=== PATIENT | male | born 1990 | race Caucasian/White ===

== ENCOUNTER 2017-05-04 20:50 | Emergency (ER) | payer BC, MEDICAID ==
[~2017-05-04] VITALS: Ht 177.8 cm; Wt 65.8 kg
--- NOTE | 2017-05-04 20:52 | NUR ---
PT BIBRA TO ER BED 09 [address]. PER REPORT, EX GIRLFRIEND CALLED 911 AFTER FACETIME W/ PT STATING THAT HE IS GONNA HANG HIMSELF. PT DENIES HE IS SUICIDAL. RED SULLIVAN NOTED TO NECK. PT STATES HE IS JUST RUBBING IT. STABLE VITALS. AWAITING MD ONEILL.
--- NOTE | 2017-05-04 20:55 | NUR ---
PD AT BEDSIDE. PT PLACED ON SI PRECAUTION.
[2017-05-04 21:31] LABS: BASOPHILS % (AUTO) 0.3 % (0.0-2.0); EOSINOPHILS # (AUTO) 0.1 /CMM (0.0-0.7); EOSINOPHILS % (AUTO) 0.6 % (0.0-6.0); HEMATOCRIT 43 % (39-51); HEMOGLOBIN 14.6 g/dL (13.5-17.5); LYMPHOCYTES # (AUTO) 1.2 /CMM (0.8-4.8); LYMPHOCYTES % (AUTO) 12.7 % (20.0-44.0); MEAN CORPUSCULAR HEMOGLOBIN 29 PG (26.0-33.0); MEAN CORPUSCULAR HGB CONC 34 g/dl (31.0-36.0); MEAN CORPUSCULAR VOLUME 85 fL (80-96); MONOCYTES # (AUTO) 0.7 /CMM (0.1-1.30); MONOCYTES % (AUTO) 7.6 % (2.0-12.0); NEUTROPHILS # (AUTO) 7.1 /CMM (1.8-8.9); NEUTROPHILS % (AUTO) 78.8 % (43.0-81.0); PLATELET COUNT (AUTO) 291 /CMM (150-450); RDW COEFFICIENT OF VARIATION 11.9 (11.5-15.0); RED BLOOD CELL COUNT(AUTO) 5.07 MIL/uL (4.5-6.0); WHITE BLOOD COUNT (AUTO) 9.1 K/uL (4.3-11.0)
[2017-05-04 21:45] LABS: CALCIUM, SERUM 8.8 mg/dL (8.5-10.1); CARBON DIOXIDE 29 mmol/L (21-32); CHLORIDE 106 mmol/L (98-107); CREATININE 0.8 mg/dL (0.6-1.3); GLUCOSE 123 mg/dL (74-106); POTASSIUM 3.6 mmol/L (3.5-5.1); SODIUM SERUM 142 mmol/L (136-145); UREA NITROGEN, BLOOD 9 mg/dL (7-18)
[2017-05-04 21:50] LABS: ALANINE AMINOTRANSFERASE 19 U/L (12-78); ALBUMIN 4.1 g/dL (3.4-5.0); ALCOHOL, BLOOD < 3 mg/dL (0-0); ALKALINE PHOSPHATASE 66 U/L (46-116); ASPARTATE AMINOTRANSFERASE 16 U/L (15-37); BILIRUBIN,DIRECT 0.2 mg/dL (0.0-0.2); BILIRUBIN,TOTAL 0.9 mg/dL (0.2-1.0); TOTAL PROTEIN, SERUM 7.6 g/dL (6.4-8.2)
[2017-05-04 21:51] LABS: ACETAMINOPHEN < 10 ug/ml (10-30); SALICYLATE < 2.8 mg/dL (2.8-20.0)
--- NOTE | 2017-05-04 22:26 | NUR ---
DR DANGELO AT BEDSIDE FOR EVAL.
[2017-05-04 22:54] LABS: APPEARANCE,URINE TURBID (CLEAR); BILIRUBIN,URINE NEGATIVE (NEGATIVE); BLOOD, URINE NEGATIVE Ery/uL (NEGATIVE); COLOR,URINE YELLOW (YELLOW); KETONES,URINE 1+ (NEGATIVE); LEUKOCYTE ESTERASE ,URINE NEGATIVE (NEGATIVE); NITRITE, URINE NEGATIVE (NEGATIVE); PH,URINE 8.5 (5.0-8.0); PROTEIN,URINE NEGATIVE (NEGATIVE); UGLUCOSE NEGATIVE (NEGATIVE)
[2017-05-04 23:00] LABS: BACTERIA,URINE None seen /HPF (None Seen); RBC,URINE 0-2 /HPF (0-2); SQUAMOUS EPITHELIAL CELL,UR Few /HPF (None Seen); URINE AMORPHOUS PHOSPHATES Many /HPF (None Seen); WBC,URINE 0-2 /HPF (0-3)
--- NOTE | 2017-05-04 23:05 | NUR ---
U/S TECH AT BEDSIDE FOR CAROTID ULTRASOUND.
--- NOTE | 2017-05-04 23:27 | NUR ---
REPORT GIVEN TO CHARGE NURSE CHLOÉ FOR IRIS.
--- NOTE | 2017-05-04 23:41 | NUR ---
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
--- NOTE | 2017-05-04 23:43 | NUR ---
RECEIVED REPORT FROM [facility]. WILL CONTINUE CARE
--- NOTE | 2017-05-05 00:31 | NUR ---
PATIENT IN BED IN STABLE CONDITION. VSS. NAD.
--- NOTE | 2017-05-05 00:42 | NUR ---
SHAHAB ETA 45 MINUTES
--- NOTE | 2017-05-05 01:27 | NUR ---
SHAHAB AT BEDSIDE FOR PSYCH EVAL.
--- NOTE | 2017-05-05 07:14 | NUR ---
GAVE REPORT TO AKANKSHA
--- NOTE | 2017-05-05 07:15 | NUR ---
RECEIVED REPORT FOR IRIS. PATIENT REMAINS CALM AND QUIET. NO DISTRESS. WILL CONTINUE TO MONITOR.
--- NOTE | 2017-05-05 08:28 | NUR ---
CALLED DION GARCIA LCSW AND LEFT A MESSAGE
--- NOTE | 2017-05-05 08:39 | NUR ---
CALLED DION ELAM FOR PSYCH EVALUATION
--- NOTE | 2017-05-05 14:36 | NUR ---
Patient discharged to home in stable condition. Written and verbal after care instructions given. Patient verbalizes understanding of instruction.
--- NOTE | 2017-05-05 14:36 | NUR ---
PER PSYCH TEAM NOTES: Patient is alert and oriented in all spheres. Denies S/I H/I and symptoms of psychosis. Judgment insight and impulse control are WNL. Sleep and appetite ae WNL. STM and LTM are WNL. Patient does not meet 5150 criteria nor inpatient criteria. Patient does not want hospitalization. Patient wants opt. treatment and to return to work. The girlfriend's mother is willing to take him home and patient [id number] he is going to look for his own place. Patient referred to [facility] [phone], [id number] [place], [facility] [phone] [place] [address], . I discussed the case with Dr. Andrews. Suicide Risk Screen Suicide Risk Screen Voicing suicidal intent/idea: No Positive hx of suicide attempt: No Pt has active suicide plan: No Hx psy cond acute symp 30d: No [facility]
[2017-05-05 14:37] VITALS: BP 112/68
== END 2017-05-05 14:37 | disposition home or self-care (01) ==
LOC: ER 20:53
DX: T14.91XA Suicide attempt, initial encounter (principal); S10.91XA Abrasion of unspecified part of neck, initial encounter; F32.9 Major depressive disorder, single episode, unspecified; X83.8XXA Intentional self-harm by other specified means, initial encounter; Y93.89 Activity, other specified; Y92.89 Other specified places as the place of occurrence of the external cause; Y99.8 Other external cause status
CPT/HCPCS: 36415; 80048-TC; 80076-TC; 80305; 81000-TC; 85025-TC; 93880-TC; A4606; G0480; Z7610